=== PATIENT | female | born 1935 | race Caucasian/White ===

== ENCOUNTER 2020-01-16 04:25 | Inpatient (IN) | payer MEDICARE, BC ==
[~2020-01-16] VITALS: Ht 167.6 cm; Wt 52.9 kg
[2020-01-16] MEDS ORDERED: SODIUM CHLORIDE 0.9% 1,000 ML IV ONE (04:46)
--- NOTE | 2020-01-16 04:54 | NUR ---
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 PT JUST FOUND THIS OUT TONIGHT AND HAS VOMITED X2 WITH APPROX 10-20 MLS OF BLOOD IN EMESIS. 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
[2020-01-16 05:35] LABS: MEAN CORPUSCULAR VOLUME 87.7 fL (80-100); MEAN PLATELET VOLUME 7.8 fL (7.4-10.4); PLATELET COUNT 608 x10^3/uL (130-400); RED BLOOD COUNT 4.45 x10^6/uL (3.82-5.3)
[2020-01-16 05:46] LABS: ALBUMIN 2.1 g/dL (3.4-5.0); ANION GAP 9 mmol/L (5-15); CALCIUM 12.2 mg/dL (8.5-10.1); CHLORIDE 105 mmol/L (98-107)
[2020-01-16 05:51] LABS: ALANINE AMINOTRANSFERASE 23 U/L (12-78); ALKALINE PHOSPHATASE 110 U/L (45-117); BILIRUBIN,TOTAL 0.6 mg/dL (0.2-1.0); CREATININE 1.11 mg/dL (0.55-1.02); TOTAL PROTEIN 6.9 g/dL (6.4-8.2)
[2020-01-16 05:52] LABS: INTERNATIONAL NORMALIZED RATIO 1.09 (0.93-1.1); PROTHROMBIN TIME 11.2 Seconds (9.6-11.5)
[2020-01-16] MEDS ORDERED: PANTOPRAZOLE 80 MG in SODIUM CHLORIDE 0.9% 100 ML IV SCH (06:00)
[2020-01-16 06:15] LABS: MD YES
[2020-01-16 06:16] LABS: BANDS%(MANUAL) 9 % (0-7)
[2020-01-16 06:17] LABS: <PLATELET ESTIMATE> INCREASED; <PLT MORPHOLOGY> NORMAL PLT MORPH; <RBC MORPHOLOGY> NORMAL
[2020-01-16 06:18] LABS: LYMPH#(MANUAL) 1.78 x10^3/uL (1-3.4); LYMPHS% (MANUAL) 10 % (22-44); MONOS% (MANUAL) 9 % (2-9); SEG#(MANUAL) 12.82 x10^3/uL (1.8-6.8); SEGS% (MANUAL) 72 % (42-75)
--- NOTE | 2020-01-16 06:20 | NUR ---
PT INCON OF STOOL, PT CLEANED AND LINENS CHANGED
--- NOTE | 2020-01-16 06:42 | NUR ---
PT ASSISTED TO [facility] AT THIS TIME
--- NOTE | 2020-01-16 06:43 | NUR ---
PT MEDICATED PER JUL 08 RIGHTS VERIFIED
--- NOTE | 2020-01-16 06:57 | NUR ---
REPORT TO BRYAN VALADEZOUTSIDE UPHOLSTERER OF CARE AT THIS TIME
--- NOTE | 2020-01-16 07:09 | NUR ---
RECEIVED REPORT FROM CANDI. PT FOUND RESTING COMFORTABLY IN BED WITH RAILS UP. PT ADVISED WE ARE WAITING FOR A ROOM FOR HER TO BE ADMITTED.
--- NOTE | 2020-01-16 07:59 | NUR ---
TRANSFER REPORT GIVEN TO [place].
[2020-01-16 08:38] VITALS: BP 116/61
[2020-01-16] MEDS ORDERED: SODIUM CHLORIDE 0.9% 1,000 ML IV SCH (08:43)
[2020-01-16] MEDS ORDERED: ONDANSETRON 2MG/ML, 2ML IVPush PRN (09:00)
[2020-01-16] MEDS ORDERED: ACETAMINOPHEN 325 MG TABLET PO PRN (09:00)
[2020-01-16] MEDS ORDERED: hydrALAzine 20 MG/ML, 1ML IVPush PRN (09:00)
[2020-01-16] MEDS: PANTOPRAZOLE 40 MG IV IVPush SCH ×3 (10:41→21:36)
[2020-01-16] MEDS ORDERED: PROPOFOL 10 MG/ML, 20ML ONE (12:14)
[2020-01-16 13:10] VITALS: BP 98/59
[2020-01-16 14:02] LABS: MICROSCOPIC INDICATED
[2020-01-16] MEDS ORDERED: LACT10SO PO (14:25)
[2020-01-16] MEDS ORDERED: LEVOFLOXACIN/PMX 750MG/150ML 150 ML IV SCH (15:00)
[2020-01-16] MEDS ORDERED: PAMIDRONATE 3 MG/ML, 10ML IV ONE (15:30)
[2020-01-16] MEDS: SUCRALFATE 1 GM/10 ML UDC PO SCH ×2 (16:35→21:33)
[2020-01-16] MEDS ORDERED: SODIUM CHLORIDE 0.9% IV ONE (17:00)
[2020-01-16] MEDS ORDERED: PAMIDRONATE IV ONE (17:00)
[2020-01-16 20:00] VITALS: BP 111/57
[2020-01-17 00:41] VITALS: BP 108/62
[2020-01-17 05:44] LABS: ANION GAP 8 mmol/L (5-15); CALCIUM 11.2 mg/dL (8.5-10.1); CHLORIDE 109 mmol/L (98-107)
[2020-01-17 05:46] LABS: CREATININE 0.87 mg/dL (0.55-1.02)
[2020-01-17 05:58] LABS: MEAN CORPUSCULAR HEMOGLOBIN 27.4 pg (27.0-34.8); MEAN CORPUSCULAR HGB CONC 31.1 g/dL (32.4-35.8); MEAN CORPUSCULAR VOLUME 88.2 fL (80-100); MEAN PLATELET VOLUME 8.1 fL (7.4-10.4); PLATELET COUNT 460 x10^3/uL (130-400); RED BLOOD COUNT 3.78 x10^6/uL (3.82-5.3); RED CELL DISTRIBUTION WIDTH 14.9 % (9.6-15.2)
[2020-01-17 06:19] LABS: MD YES
[2020-01-17 06:22] LABS: <PLATELET ESTIMATE> INCREASED; <PLT MORPHOLOGY> NORMAL PLT MORPH; <RBC MORPHOLOGY> NORMAL; BAND#(MANUAL) 1.47 x10^3/uL; BANDS%(MANUAL) 10 % (0-7); LYMPH#(MANUAL) 1.62 x10^3/uL (1-3.4); LYMPHS% (MANUAL) 11 % (22-44); MONOS#(MANUAL) 1.76 x10^3/uL (0.3-2.7); MONOS% (MANUAL) 12 % (2-9); SEG#(MANUAL) 9.85 x10^3/uL (1.8-6.8); SEGS% (MANUAL) 67 % (42-75)
[2020-01-17] MEDS ORDERED: POTASSIUM CHLORIDE 20 MEQ TAB.ER.PRT PO ONE (08:00)
[2020-01-17 08:03] VITALS: BP 107/63
[2020-01-17] MEDS: PANTOPRAZOLE 40 MG IV IVPush SCH (08:23)
[2020-01-17] MEDS: SUCRALFATE 1 GM/10 ML UDC PO SCH ×4 (08:23→22:10)
[2020-01-17] MEDS ORDERED: SODIUM CHLORIDE 0.9% 1,000 ML IV SCH ×2 (08:43)
[2020-01-17] MEDS ORDERED: FENTANYL 12 MCG PATCH TD SCH (12:00)
[2020-01-17] MEDS ORDERED: MORPHINE SULFATE 4 MG/ML, 1ML ONE (13:21)
[2020-01-17] MEDS: MORPHINE SULFATE 4 MG/ML, 1ML IVPush PRN (13:22)
[2020-01-17] MEDS ORDERED: OXYcodone IR 5MG TABLET PO PRN (13:30)
[2020-01-17] MEDS: PANTOPRAZOLE GRAN. PKT 40 MG PO SCH (22:10)
[2020-01-18] MEDS: SUCRALFATE 1 GM/10 ML UDC PO SCH ×3 (06:35→16:54)
[2020-01-18] MEDS: PANTOPRAZOLE GRAN. PKT 40 MG PO SCH (08:27)
[2020-01-18] MEDS ORDERED: morphine SULFATE 15 MG TAB.IR PO PRN (12:00)
[2020-01-18] MEDS ORDERED: LORA-445 PO (12:07)
[2020-01-18] MEDS ORDERED: FENT1PAT74 TD (12:07)
[2020-01-18] MEDS ORDERED: ONDA4TAB7 PO (12:13)
[2020-01-18] MEDS ORDERED: morphine SULFATE ORAL.CONC 20 MG/ML PO PRN (12:30)
[2020-01-18] MEDS: MORPHINE SULFATE 4 MG/ML, 1ML IVPush PRN (16:54)
[2020-01-20] MEDS ORDERED: FENTANYL REMOVE PATCH NOTE XX SCH (11:59)
== END 2020-01-18 17:47 | disposition hospice, home (50) | DRG 368 ==
LOC: ED 06:35 → EDIP 07:43 → 4NE 08:10
PROVIDERS: ADMIT Family Medicine; ATTEND Hospitalist
PROC: 0DJ08ZZ Inspection of Upper Intestinal Tract, Via Natural or Artificial Opening Endoscopic (ICD-10-PCS; principal; 2020-01-16 13:00)
DX: K22.6 Gastro-esophageal laceration-hemorrhage syndrome (principal); E43 Unspecified severe protein-calorie malnutrition; G93.41 Metabolic encephalopathy; N13.6 Pyonephrosis; Z68.1 Body mass index [BMI] 19.9 or less, adult; C78.89 Secondary malignant neoplasm of other digestive organs; C50.919 Malignant neoplasm of unspecified site of unspecified female breast; Z20.828 Contact with and (suspected) exposure to other viral communicable diseases; Z88.0 Allergy status to penicillin; Z88.8 Allergy status to other drugs, medicaments and biological substances; D64.9 Anemia, unspecified; D72.828 Other elevated white blood cell count; E83.52 Hypercalcemia; F03.90 Unspecified dementia, unspecified severity, without behavioral disturbance, psychotic disturbance, mood disturbance, and anxiety; K21.9 Gastro-esophageal reflux disease without esophagitis; K22.2 Esophageal obstruction; K44.9 Diaphragmatic hernia without obstruction or gangrene; K56.41 Fecal impaction; M19.90 Unspecified osteoarthritis, unspecified site; Z87.19 Personal history of other diseases of the digestive system
CPT/HCPCS: 36415; 80048; 80053; 81001; 85025; 85610; 85730; 87086; 87635; 93005; 96374; 99285; G0378; J1956; J2405; J2704; C9113; J2270; J2430; J7030